=== PATIENT | female | born 1965 | race Two or more races ===

== ENCOUNTER 2023-12-24 12:45 | Inpatient (IN) | payer OTHER ==
[~2023-12-24] VITALS: Ht 162.6 cm; Wt 65.8 kg
[2023-12-24 15:43] LABS: RH POSITIVE
[2023-12-25 11:36] VITALS: BP 123/78
[2023-12-27] MEDS ORDERED: METRONIDAZOLE/SODIUM CHLORIDE 500 MG/100 ML PIGGYBACK IV SCH (07:00)
[2023-12-27] MEDS ORDERED: CEFAZOLIN SODIUM 1,000 MG VIAL IV SCH ×2 (07:00→17:00)
[2023-12-27] MEDS ORDERED: KETOROLAC TROMETHAMINE 30 MG VIAL IV ONE ×3 (15:30→19:50)
[2023-12-27] MEDS ORDERED: RINGERS SOLUTION,LACTATED 1,000 ML IV SCH (15:30)
[2023-12-27] MEDS ORDERED: MORPHINE SULFATE 4 MG/ML CARTRIDGE IV PRN (15:30)
[2023-12-27] MEDS ORDERED: SURGIFLO APPLICATOR 1 EACH APPL TOP ONE (15:30)
[2023-12-27] MEDS ORDERED: HEMOSTATIC MATRIX 1 KIT KIT TOP ONE (15:30)
[2023-12-27] MEDS ORDERED: ANASTROZOLE1 MG PO (15:38)
[2023-12-27] MEDS ORDERED: CRESTOR40 MG PO (15:38)
[2023-12-27] MEDS ORDERED: MORPHINE SULFATE 4 MG/ML VIAL IV ONE ×2 (16:35→17:05)
[2023-12-27] MEDS ORDERED: SIMETHICONE 125 MG CAPSULE PO SCH (17:00)
[2023-12-27] MEDS ORDERED: METOCLOPRAMIDE HCL 5 MG/ML VIAL IV SCH (17:00)
[2023-12-27] MEDS ORDERED: KETOROLAC TROMETHAMINE 30 MG VIAL IM SCH (18:00)
[2023-12-27] MEDS ORDERED: ACETAMINOPHEN 500 MG GEL..CAP PO SCH (18:00)
[2023-12-27 18:31] LABS: ALBUMIN 3.5 gm/dL (3.4-5.0); CALCIUM 9.1 mg/dL (8.5-10.1); CREATININE SERUM 0.78 mg/dL (0.55-1.02); GFR 75.33; PHOSPHOROUS 4.6 mg/dL (2.5-4.9); POTASSIUM 4.54 mEq/L (3.5-5.1)
[2023-12-27 20:13] LABS: HEMOGLOBIN 13.8 g/dL (12.0-15.00); MEAN CELL VOLUME 90.5 fL (80.00-100.00); MEAN CORPUSCULAR HEMOGLOBIN 31.1 pg (27.00-32.0); MEAN CORPUSCULAR HGB CONC 34.4 g/dl (32.0-36.0); PLATELET COUNT 160 K/uL (150-450); RED BLOOD COUNT 4.42 M/uL (4.00-6.00); RED CELL DISTRIBUTION WIDTH 13.7 % (11.5-14.5)
[2023-12-27 20:38] LABS: ALBUMIN 3.7 gm/dL (3.4-5.0); CALCIUM 9.2 mg/dL (8.5-10.1); CREATININE SERUM 0.82 mg/dL (0.55-1.02); GFR 71.11; PHOSPHOROUS 4.3 mg/dL (2.5-4.9); POTASSIUM 4.12 mEq/L (3.5-5.1)
[2023-12-27] MEDS ORDERED: FAMOTIDINE/PF 20 MG/2 ML VIAL IV PUSH SCH (21:00)
[2023-12-27] MEDS ORDERED: GABAPENTIN 300 MG CAPSULE PO SCH (21:00)
[2023-12-27] MEDS ORDERED: DOCUSATE SODIUM 100MG CAP PO SCH (21:00)
[2023-12-27 23:30] VITALS: BP 110/68; O2SAT 97
[2023-12-28 06:54] LABS: HEMOGLOBIN 11.7 g/dL (12.0-15.00); MEAN CELL VOLUME 89.8 fL (80.00-100.00); MEAN CORPUSCULAR HEMOGLOBIN 31.8 pg (27.00-32.0); MEAN CORPUSCULAR HGB CONC 35.4 g/dl (32.0-36.0); PLATELET COUNT 138 K/uL (150-450); RED BLOOD COUNT 3.67 M/uL (4.00-6.00); RED CELL DISTRIBUTION WIDTH 13.7 % (11.5-14.5)
[2023-12-28 07:52] LABS: ALBUMIN 3.2 gm/dL (3.4-5.0); CALCIUM 8.9 mg/dL (8.5-10.1); CREATININE SERUM 0.69 mg/dL (0.55-1.02); GFR 86.78; PHOSPHOROUS 4.1 mg/dL (2.5-4.9); POTASSIUM 4.03 mEq/L (3.5-5.1)
[2023-12-28 08:29] VITALS: BP 97/74; O2SAT 100
[2023-12-28] MEDS ORDERED: ENOXAPARIN SODIUM 40 MG/0.4 ML SYRINGE SUBCUTANEO SCH (09:00)
== END 2023-12-28 12:01 | disposition home or self-care (01) | DRG 743 ==
LOC: SURG 12-27 07:47 → O/R 12-27 07:47 → OB/GYN 12-27 12:45 → SURG 12-27 18:42 → OB/GYN 12-27 19:30 → SURG 12-28 12:01
PROVIDERS: Obstetrics & Gynecology; ADMIT Obstetrics & Gynecology Gynecologic Oncology; ATTEND Obstetrics & Gynecology Gynecologic Oncology
PROC: 0UT74ZZ Resection of Bilateral Fallopian Tubes, Percutaneous Endoscopic Approach (ICD-10-PCS; 2023-12-27)
PROC: 0UT24ZZ Resection of Bilateral Ovaries, Percutaneous Endoscopic Approach (ICD-10-PCS; 2023-12-27)
PROC: 07BC4ZZ Excision of Pelvis Lymphatic, Percutaneous Endoscopic Approach (ICD-10-PCS; 2023-12-27)
PROC: 0UT94ZZ Resection of Uterus, Percutaneous Endoscopic Approach (ICD-10-PCS; principal; 2023-12-27 19:30)
DX: D25.9 Leiomyoma of uterus, unspecified (principal); N80.03 Adenomyosis of the uterus; D36.0 Benign neoplasm of lymph nodes; Z20.822 Contact with and (suspected) exposure to COVID-19